=== PATIENT | female | born 1970 | race Caucasian/White ===

== ENCOUNTER → 2017-07-01 | Outpatient (CLI) | payer BC ==
[~2017-07-01] MED LIST: DIAZ5TAB4 PO; NAPR500T4 PO; OMEP-110 PO; OMNIPAQUE 350 MG/ML, 75ML BOTTLE ONE; ONDA4TAB7 PO; OXYC5TAB3 PO; SUMA100T3 PO; TRIA1CAP3 PO; WHEA1POW8 PO
== END | disposition home or self-care (01) ==
LOC: RAD 13:41
PROVIDERS: ATTEND Nurse Practitioner Primary Care
DX: R91.8 Other nonspecific abnormal finding of lung field (principal)
CPT/HCPCS: 36415; 71260; 82565; Q9967

== ENCOUNTER 2017-07-22 10:51 | Day surgery (SDC) | payer BC ==
[~2017-07-22 10:51] MED LIST changes: +ALBUTEROL HFA 90 MCG/SPRAY ONE; +DEXAMETHASONE 4 MG/ML, 1ML ONE; +FENTANYL PF 250 MCG/5ML ONE; +MIDAZOLAM 1 MG/ML, 2ML ONE; -OMNIPAQUE 350 MG/ML, 75ML BOTTLE ONE; +ONDANSETRON 2MG/ML, 2ML ONE; +PROPOFOL 10 MG/ML, 20ML ONE; +PROPOFOL 50 ML ONE; +ROCURONIUM 10 MG/ML,10ML ONE; +SUCCINYLCHOLINE 20 MG/ML, 10ML ONE
[2017-07-22 11:15] LABS: HCG UR LOT HCG7030192
[2017-07-22 11:18] LABS: HCG UR OBC PASS
[2017-07-22] MEDS ORDERED: ALBU18HF INH (11:22)
[2017-07-22] MEDS ORDERED: OMEG1CAP6 PO (11:22)
[2017-07-22] MEDS ORDERED: BCP (11:22)
[2017-07-22] MEDS ORDERED: MIDAZOLAM 1 MG/ML, 2ML ONE (11:55)
[2017-07-22] MEDS ORDERED: SUCCINYLCHOLINE 20 MG/ML, 10ML ONE (11:55)
[2017-07-22] MEDS ORDERED: ONDANSETRON 2MG/ML, 2ML ONE (11:55)
[2017-07-22] MEDS ORDERED: PROPOFOL 10 MG/ML, 50ML ONE (11:55)
[2017-07-22] MEDS ORDERED: ROCURONIUM 10 MG/ML,10ML ONE (11:55)
[2017-07-22] MEDS ORDERED: FENTANYL PF 250 MCG/5ML ONE (11:55)
[2017-07-22] MEDS ORDERED: DEXAMETHASONE 4 MG/ML, 1ML ONE (11:55)
[2017-07-22] MEDS ORDERED: PROPOFOL 10 MG/ML, 20ML ONE ×2 (11:55→12:51)
[2017-07-22] MEDS ORDERED: MIDAZOLAM 1 MG/ML, 2ML IV PRN (12:30)
[2017-07-22] MEDS ORDERED: LABETALOL 5MG/ML, 20ML IV PRN (12:30)
[2017-07-22] MEDS ORDERED: PROMETHAZINE 25 MG/ML, 1ML IV PRN (12:30)
[2017-07-22] MEDS ORDERED: ACETAMINOPHEN 325 MG TABLET PO PRN (12:30)
[2017-07-22] MEDS ORDERED: FENTANYL PF 100 MCG/2ML IV PRN (12:30)
[2017-07-22] MEDS ORDERED: ONDANSETRON 2MG/ML, 2ML IVPush PRN (12:30)
[2017-07-22] MEDS ORDERED: LORazepam 2 MG/ML, 1ML IVPush PRN (12:30)
[2017-07-22] MEDS ORDERED: ALBUTEROL/IPRATROPIUM 2.5MG/0.5MG, 3 ML NPPB PRN (12:30)
[2017-07-22] MEDS ORDERED: EPHEDRINE 50 MG/ML, 1ML IVPush PRN (12:30)
[2017-07-22] MEDS ORDERED: HYDROmorphone 1 MG/ML, 1ML IV PRN (12:30)
[2017-07-22] MEDS ORDERED: PLEASE ENTER HEIGHT AND WEIGHT MC SCH (13:00)
== END 2017-07-22 15:10 ==
LOC: OUT 10:51
PROVIDERS: ATTEND Internal Medicine
DX: C34.32 Malignant neoplasm of lower lobe, left bronchus or lung (principal); E78.5 Hyperlipidemia, unspecified; J30.9 Allergic rhinitis, unspecified
CPT/HCPCS: 31623; 31624; 31627; 31629; 71010; 71250; 76001; 81025; 88112; 88172; 88173; 88177; 88305; 88333; 88334; J0330; J1100; J2250; J2405; J2704; J3010

== ENCOUNTER → 2017-08-18 | Outpatient (CLI) | payer BC ==
[~2017-08-18] MED LIST changes: +ALBU18HF INH; -ALBUTEROL HFA 90 MCG/SPRAY ONE; +BCP; -DEXAMETHASONE 4 MG/ML, 1ML ONE; -FENTANYL PF 250 MCG/5ML ONE; -MIDAZOLAM 1 MG/ML, 2ML ONE; +OMEG1CAP6 PO; -ONDANSETRON 2MG/ML, 2ML ONE; -PROPOFOL 10 MG/ML, 20ML ONE; -PROPOFOL 50 ML ONE; -ROCURONIUM 10 MG/ML,10ML ONE; -SUCCINYLCHOLINE 20 MG/ML, 10ML ONE; +TRIA50CA PO; +Zicam PO
[2017-08-18 08:49] LABS: BASOPHILS # (AUTO) 0.03 x10^3/uL (0-0.1); BASOPHILS % (AUTO) 0 % (0-1); EOSINOPHILS # (AUTO) 0.18 x10^3/uL (0-0.4); EOSINOPHILS % (AUTO) 2 % (1-7); LYMPHOCYTES # (AUTO) 2.99 x10^3/uL (1-3.4); LYMPHOCYTES % (AUTO) 40 % (22-44); MD NO; MEAN CORPUSCULAR HEMOGLOBIN 29.3 pg (27.0-34.8); MEAN CORPUSCULAR HGB CONC 33.7 g/dL (32.4-35.8); MEAN CORPUSCULAR VOLUME 87.1 fL (80-100); MEAN PLATELET VOLUME 8.1 fL (7.4-10.4); MONOCYTES # (AUTO) 0.53 x10^3/uL (0.2-0.8); MONOCYTES % (AUTO) 7 % (2-9); NEUTROPHILS # (AUTO) 3.81 x10^3/uL (1.8-6.8); NEUTROPHILS % (AUTO) 51 % (42-75); PLATELET COUNT 372 x10^3/uL (130-400); RED BLOOD COUNT 4.68 x10^6/uL (3.82-5.3); RED CELL DISTRIBUTION WIDTH 13.2 % (9.6-15.2)
[2017-08-18 08:58] LABS: INTERNATIONAL NORMALIZED RATIO 0.96 (0.93-1.1)
[2017-08-18 09:01] LABS: ALANINE AMINOTRANSFERASE 21 U/L (12-78); ALBUMIN 3.4 g/dL (3.4-5.0); ANION GAP 9 mmol/L (5-15); CALCIUM 9.1 mg/dL (8.5-10.1); CHLORIDE 106 mmol/L (98-107); CREATININE 1.06 mg/dL (0.55-1.02)
[2017-08-18 09:03] LABS: ALKALINE PHOSPHATASE 58 U/L (45-117); BILIRUBIN,TOTAL 0.3 mg/dL (0.2-1.0); TOTAL PROTEIN 7.7 g/dL (6.4-8.2)
== END ==
LOC: STAR 07:49
PROVIDERS: ATTEND Surgery
DX: Z01.818 Encounter for other preprocedural examination (principal); R94.31 Abnormal electrocardiogram [ECG] [EKG]; R79.1 Abnormal coagulation profile
CPT/HCPCS: 36415; 80053; 85025; 85610; 85730; 93005

== ENCOUNTER 2017-08-22 08:18 | Inpatient (IN) | payer BC ==
[~2017-08-22] VITALS: Ht 172.7 cm; Wt 76.7 kg
[2017-08-22 09:14] VITALS: BP 131/92
[2017-08-22 09:44] LABS: HCG UR SG 1.026 (1.003-1.030)
[2017-08-22] MEDS ORDERED: LIDOCAINE 1%, 2ML ONE (09:44)
[2017-08-22] MEDS ORDERED: EPINEPHRINE 1 MG/ML, 1ML ONE ×2 (09:54→14:54)
[2017-08-22] MEDS: LACTATED RINGERS 1,000 ML IV SCH ×2 (09:54→09:56)
[2017-08-22] MEDS ORDERED: BUPIVACAINE/PF 0.5% ONE ×2 (09:54→14:54)
[2017-08-22] MEDS ORDERED: MIDAZOLAM 1 MG/ML, 2ML ONE (09:59)
[2017-08-22] MEDS ORDERED: FENTANYL PF 250 MCG/5ML ONE (10:00)
[2017-08-22] MEDS ORDERED: LIDOCAINE 1%, 2ML SQ PRN (10:00)
[2017-08-22] MEDS ORDERED: HYDROmorphone 2 MG/ML, 1ML ONE ×2 (11:28→15:33)
[2017-08-22] MEDS ORDERED: OXYcodone 5 MG/5 ML ORAL.SOL UDC PO PRN (12:00)
[2017-08-22] MEDS ORDERED: FENTANYL PF 100 MCG/2ML IV PRN (12:00)
[2017-08-22] MEDS ORDERED: LABETALOL 5MG/ML, 20ML IV PRN (12:00)
[2017-08-22] MEDS ORDERED: ONDANSETRON 2MG/ML, 2ML IVPush PRN (12:00)
[2017-08-22] MEDS ORDERED: ALBUTEROL SULFATE 2.5 MG/3 ML NPPB PRN (12:00)
[2017-08-22] MEDS ORDERED: DIAZEPAM 5 MG/ML, 2ML IVPush PRN (12:00)
[2017-08-22] MEDS ORDERED: HYDROcodone/APAP 7.5-325MG/15ML UDC PO PRN (12:00)
[2017-08-22] MEDS ORDERED: hydrALAzine 20 MG/ML, 1ML IV PRN (12:00)
[2017-08-22] MEDS ORDERED: PROMETHAZINE 25 MG/ML, 1ML IV PRN (12:00)
[2017-08-22] MEDS ORDERED: ACETAMINOPHEN 325 MG TABLET PO PRN (12:00)
[2017-08-22] MEDS ORDERED: METOPROLOL 1 MG/ML, 5ML IV PRN (12:00)
[2017-08-22] MEDS ORDERED: MIDAZOLAM 1 MG/ML, 2ML IV PRN (12:00)
[2017-08-22] MEDS ORDERED: EPHEDRINE 50 MG/ML, 1ML IVPush PRN (12:00)
[2017-08-22] MEDS: HYDROmorphone 1 MG/ML, 1ML IV PRN ×3 (15:30→15:54)
[2017-08-22] MEDS ORDERED: HYDROmorphone PCA 30 MG/30 ML ONE (15:33)
[2017-08-22] MEDS: HYDROmorphone PCA 30 MG/30 ML IV PRN (15:55)
[2017-08-22 15:58] LABS: ANION GAP 11 mmol/L (5-15); CALCIUM 8.2 mg/dL (8.5-10.1); CHLORIDE 109 mmol/L (98-107)
[2017-08-22 15:59] LABS: CREATININE 1.08 mg/dL (0.55-1.02)
[2017-08-22 16:02] LABS: MEAN CORPUSCULAR HEMOGLOBIN 29.9 pg (27.0-34.8); MEAN CORPUSCULAR HGB CONC 33.5 g/dL (32.4-35.8); MEAN CORPUSCULAR VOLUME 89.1 fL (80-100); MEAN PLATELET VOLUME 8.2 fL (7.4-10.4); PLATELET COUNT 408 x10^3/uL (130-400); RED BLOOD COUNT 4.35 x10^6/uL (3.82-5.3); RED CELL DISTRIBUTION WIDTH 13.5 % (9.6-15.2)
[2017-08-22 16:15] LABS: MD YES
[2017-08-22 16:17] LABS: BANDS%(MANUAL) 3 % (0-7); LYMPH#(MANUAL) 2.65 x10^3/uL (1-3.4); LYMPHS% (MANUAL) 10 % (22-44); MONOS#(MANUAL) 2.12 x10^3/uL (0.3-2.7); MONOS% (MANUAL) 8 % (2-9); SEG#(MANUAL) 20.94 x10^3/uL (1.8-6.8); SEGS% (MANUAL) 79 % (42-75)
[2017-08-22 16:18] LABS: <PLATELET ESTIMATE> INCREASED; <PLT MORPHOLOGY> NORMAL PLT MORPH; <RBC MORPHOLOGY> NORMAL
[2017-08-22] MEDS ORDERED: KETOROLAC 30 MG/1 ML ONE (16:18)
[2017-08-22] MEDS ORDERED: KETOROLAC 30 MG/1 ML IVPush SCH (17:00)
[2017-08-22] MEDS ORDERED: KETOROLAC 30 MG/1 ML IVPush ONE (17:00)
[2017-08-22 18:50] VITALS: BP 112/73
[2017-08-22] MEDS ORDERED: METOPROLOL TARTRATE 25 MG TABLET PO SCH (19:00)
[2017-08-22] MEDS ORDERED: KETOROLAC 30 MG/1 ML IVPush PRN (20:00)
[2017-08-22] MEDS: POTASSIUM CHLORIDE 20 MEQ in D5%-0.45% NACL 1,000 ML IV SCH (20:24)
[2017-08-22] MEDS: IBUPROFEN 200 MG TABLET PO SCH (20:25)
[2017-08-22] MEDS: ACETAMINOPHEN 500 MG TABLET PO SCH (20:25)
[2017-08-22 20:30] VITALS: BP 121/77
[2017-08-22] MEDS: CEFAZOLIN PMX 2GM/100ML 100 ML IVPB SCH (23:01)
[2017-08-23 00:24] VITALS: BP 97/55
[2017-08-23] MEDS: ACETAMINOPHEN 500 MG TABLET PO SCH ×3 (03:00→15:42)
[2017-08-23 05:15] LABS: BASOPHILS # (AUTO) 0.06 x10^3/uL (0-0.1); BASOPHILS % (AUTO) 0 % (0-1); EOSINOPHILS # (AUTO) 0.01 x10^3/uL (0-0.4); EOSINOPHILS % (AUTO) 0 % (1-7); LYMPHOCYTES # (AUTO) 2.29 x10^3/uL (1-3.4); LYMPHOCYTES % (AUTO) 15 % (22-44); MD NO; MEAN CORPUSCULAR HEMOGLOBIN 29.9 pg (27.0-34.8); MEAN CORPUSCULAR HGB CONC 33.7 g/dL (32.4-35.8); MEAN CORPUSCULAR VOLUME 88.7 fL (80-100); MEAN PLATELET VOLUME 8.4 fL (7.4-10.4); MONOCYTES # (AUTO) 1.31 x10^3/uL (0.2-0.8); MONOCYTES % (AUTO) 9 % (2-9); NEUTROPHILS # (AUTO) 11.34 x10^3/uL (1.8-6.8); NEUTROPHILS % (AUTO) 76 % (42-75); PLATELET COUNT 291 x10^3/uL (130-400); RED BLOOD COUNT 3.58 x10^6/uL (3.82-5.3); RED CELL DISTRIBUTION WIDTH 13.4 % (9.6-15.2)
[2017-08-23 05:23] LABS: CHLORIDE 106 mmol/L (98-107)
[2017-08-23 05:27] LABS: ALBUMIN 2.6 g/dL (3.4-5.0); ANION GAP 7 mmol/L (5-15); CALCIUM 8.3 mg/dL (8.5-10.1)
[2017-08-23] MEDS: CEFAZOLIN PMX 2GM/100ML 100 ML IVPB SCH (06:26)
[2017-08-23 08:24] VITALS: BP 108/67
[2017-08-23] MEDS: ENOXAPARIN 40 MG/0.4 ML SQ SCH (08:29)
[2017-08-23] MEDS: IBUPROFEN 200 MG TABLET PO SCH ×2 (08:31→12:00)
[2017-08-23] MEDS: POTASSIUM CHLORIDE 20 MEQ in D5%-0.45% NACL 1,000 ML IV SCH (11:07)
[2017-08-23] MEDS: HYDROmorphone 2MG TABLET PO PRN ×3 (11:16→21:02)
[2017-08-23] MEDS ORDERED: TRAZODONE 50MG TABLET PO PRN (12:30)
[2017-08-23] MEDS: KETOROLAC 30 MG/1 ML IVPush PRN ×2 (13:10→21:03)
[2017-08-23 15:18] VITALS: BP 129/77
[2017-08-23 20:01] VITALS: BP 119/75
[2017-08-24] MEDS: ACETAMINOPHEN 500 MG TABLET PO SCH ×4 (00:59→17:58)
[2017-08-24] MEDS: IBUPROFEN 200 MG TABLET PO SCH ×4 (00:59→17:59)
[2017-08-24 03:13] VITALS: BP 106/69
[2017-08-24 07:40] VITALS: BP 115/77
[2017-08-24] MEDS: HYDROmorphone 2MG TABLET PO PRN ×3 (08:25→17:58)
[2017-08-24] MEDS: ENOXAPARIN 40 MG/0.4 ML SQ SCH (08:26)
[2017-08-24 14:14] VITALS: BP 125/80
[2017-08-24] MEDS: ALBUTEROL/IPRATROPIUM 2.5MG/0.5MG, 3 ML NPPB PRN (17:02)
[2017-08-24 18:40] VITALS: BP 135/84
[2017-08-24] MEDS: HYDROmorphone PCA 30 MG/30 ML IV PRN (18:55)
[2017-08-25 01:06] VITALS: BP 126/88
[2017-08-25] MEDS: ACETAMINOPHEN 500 MG TABLET PO SCH ×4 (03:37→21:39)
[2017-08-25 06:54] VITALS: BP 136/88
[2017-08-25] MEDS: ENOXAPARIN 40 MG/0.4 ML SQ SCH (08:10)
[2017-08-25] MEDS: IBUPROFEN 200 MG TABLET PO SCH ×3 (08:10→18:27)
[2017-08-25] MEDS: SENNA/DOCUSATE TABLET PO PRN (12:22)
[2017-08-25] MEDS: ALBUTEROL/IPRATROPIUM 2.5MG/0.5MG, 3 ML NPPB PRN (13:08)
[2017-08-25 14:12] VITALS: BP 137/89
[2017-08-25 19:23] VITALS: BP 155/88
[2017-08-25] MEDS: ONDANSETRON 2MG/ML, 2ML IV PRN (19:59)
[2017-08-25] MEDS: POLYETHYLENE GLYCOL 17 GM PACKET PO PRN (21:39)
[2017-08-26 01:45] VITALS: BP 118/83
[2017-08-26] MEDS: ACETAMINOPHEN 500 MG TABLET PO SCH ×4 (05:39→23:41)
[2017-08-26] MEDS ORDERED: SUMATRIPTAN 50 MG TABLET PO PRN (06:00)
[2017-08-26] MEDS ORDERED: DIAZEPAM 5 MG TABLET PO ONE (06:00)
[2017-08-26] MEDS ORDERED: SUMATRIPTAN 100 MG TABLET PO PRN (07:00)
[2017-08-26 07:20] VITALS: BP 121/77
[2017-08-26] MEDS: ENOXAPARIN 40 MG/0.4 ML SQ SCH (07:21)
[2017-08-26] MEDS: IBUPROFEN 200 MG TABLET PO SCH ×3 (07:21→23:41)
[2017-08-26] MEDS: POLYETHYLENE GLYCOL 17 GM PACKET PO PRN (13:25)
[2017-08-26] MEDS: ONDANSETRON 2MG/ML, 2ML IV PRN (13:25)
[2017-08-26 16:15] VITALS: BP 140/92
[2017-08-26 18:55] VITALS: BP 135/96
[2017-08-26 20:17] VITALS: BP 122/88
[2017-08-27 02:00] VITALS: BP 121/84
[2017-08-27] MEDS ORDERED: ALBUTEROL SULFATE 2.5 MG/3 ML NPPB PRN (02:00)
[2017-08-27] MEDS: ACETAMINOPHEN 500 MG TABLET PO SCH ×3 (05:25→18:26)
[2017-08-27 09:11] VITALS: BP 144/85
[2017-08-27] MEDS: ENOXAPARIN 40 MG/0.4 ML SQ SCH (09:22)
[2017-08-27] MEDS: IBUPROFEN 200 MG TABLET PO SCH ×3 (09:22→16:49)
[2017-08-27] MEDS: SENNA/DOCUSATE TABLET PO PRN (09:22)
[2017-08-27] MEDS: POLYETHYLENE GLYCOL 17 GM PACKET PO PRN (09:23)
[2017-08-27 19:57] VITALS: BP 150/95
[2017-08-28] MEDS: ACETAMINOPHEN 500 MG TABLET PO SCH ×3 (00:18→11:43)
[2017-08-28 02:15] VITALS: BP 132/88
[2017-08-28 06:50] VITALS: BP 144/95
[2017-08-28] MEDS: IBUPROFEN 200 MG TABLET PO SCH ×2 (07:40→11:43)
[2017-08-28] MEDS: ENOXAPARIN 40 MG/0.4 ML SQ SCH (07:40)
[2017-08-28] MEDS ORDERED: HYDR2TAB29 PO (08:42)
[2017-08-28] MEDS ORDERED: ACET650S21 PO (08:43)
[2017-08-28] MEDS ORDERED: IBUP-1222 PO (08:44)
[2017-08-28 12:00] VITALS: BP 146/90
== END 2017-08-28 12:20 | disposition home or self-care (01) | DRG 165 ==
LOC: ORIP 08:18 → EDSTATUS 10:15 → 5SO 17:55 → 4NOR 08-25 19:40
PROVIDERS: ADMIT Surgery; ATTEND Surgery
PROC: 07B73ZX Excision of Thorax Lymphatic, Percutaneous Approach, Diagnostic (ICD-10-PCS; 2017-08-22)
PROC: 0BBJ4ZZ Excision of Left Lower Lung Lobe, Percutaneous Endoscopic Approach (ICD-10-PCS; principal; 2017-08-22 10:15)
DX: C34.92 Malignant neoplasm of unspecified part of left bronchus or lung (principal); F17.210 Nicotine dependence, cigarettes, uncomplicated; K21.9 Gastro-esophageal reflux disease without esophagitis; I10 Essential (primary) hypertension; Z90.49 Acquired absence of other specified parts of digestive tract; Z82.49 Family history of ischemic heart disease and other diseases of the circulatory system
CPT/HCPCS: 36415; 71045; 80048; 81025; 82040; 85025; 86850; 86900; 86923; 88305; 88309; 88360; 94640; C1729; J0171; J0690; J1100; J1170; J1650; J1885; J2250; J2405; J2704; J2710; J3010; J3480; J3490; J7620; C1760; J0330; J7120

== ENCOUNTER → 2017-11-22 | Outpatient (CLI) | payer BC ==
[~2017-11-22] MED LIST changes: +ACET650S21 PO; +HYDR2TAB29 PO; +IBUP-1222 PO; +NAPR-685 PO; -NAPR500T4 PO
== END | disposition home or self-care (01) ==
LOC: CFH 09:59
PROVIDERS: ATTEND Surgery
DX: Z46.82 Encounter for fitting and adjustment of non-vascular catheter (principal); R06.02 Shortness of breath
CPT/HCPCS: 71046

== ENCOUNTER → 2018-05-19 | Outpatient (CLI) | payer BC ==
[~2018-05-19] MED LIST changes: +OMNIPAQUE 350 MG/ML, 75ML BOTTLE ONE
== END | disposition home or self-care (01) ==
LOC: CFH 08:36
PROVIDERS: ATTEND Surgery
DX: R91.1 Solitary pulmonary nodule (principal)
CPT/HCPCS: 71260; 82565; Q9967

== ENCOUNTER → 2020-01-23 | Outpatient (CLI) | payer BC ==
[~2020-01-23] MED LIST changes: -OMNIPAQUE 350 MG/ML, 75ML BOTTLE ONE
== END | disposition home or self-care (01) ==
LOC: CFH 09:02
PROVIDERS: ATTEND Nurse Practitioner Primary Care
DX: J34.2 Deviated nasal septum (principal); J34.89 Other specified disorders of nose and nasal sinuses
CPT/HCPCS: 70486